=== PATIENT | male | born 1970 | race Two or more races ===

== ENCOUNTER 2016-10-08 22:24 | Emergency (ER) | payer SELFPAY ==
[~2016-10-08] VITALS: Ht 177.8 cm; Wt 83.9 kg
--- NOTE | 2016-10-08 22:29 | NUR ---
PT A/OX4 BREATHING EFFORTLESSLY ON ROOM AIR, PT STATES HE IS FEELING PERFECTLY FINE AND DOES NOT WANT VITALS OR TO BE TRIAGED, MADE AWARE
--- NOTE | 2016-10-08 22:34 | NUR ---
DR LEWIS AT BEDSIDE FOR EVAL.
[2016-10-08] MEDS ORDERED: IV SET PRIMARY 1 EA INFUS.SET MC ONE (22:49)
[2016-10-08] MEDS ORDERED: IV NS 0.9% 500 ML IV ONE (22:49)
[2016-10-08] MEDS ORDERED: IV NS 0.9% 500 ML BAG IV ONE (23:00)
[2016-10-08 23:02] LABS: BASOPHILS % (AUTO) 0.7 % (0.0-2.0); EOSINOPHILS # (AUTO) 0.1 /CMM (0.0-0.7); EOSINOPHILS % (AUTO) 2.5 % (0.0-6.0); HEMATOCRIT 47 % (39-51); HEMOGLOBIN 15.9 g/dL (13.5-17.5); LYMPHOCYTES # (AUTO) 1.8 /CMM (0.8-4.8); LYMPHOCYTES % (AUTO) 34.6 % (20.0-44.0); MEAN CORPUSCULAR HEMOGLOBIN 31 PG (26.0-33.0); MEAN CORPUSCULAR HGB CONC 34 g/dl (31.0-36.0); MEAN CORPUSCULAR VOLUME 90 fL (80-96); MONOCYTES # (AUTO) 0.4 /CMM (0.1-1.30); MONOCYTES % (AUTO) 7.2 % (2.0-12.0); NEUTROPHILS # (AUTO) 2.9 /CMM (1.8-8.9); PLATELET COUNT (AUTO) 243 /CMM (150-450); RDW COEFFICIENT OF VARIATION 12.6 (11.5-15.0); RED BLOOD CELL COUNT(AUTO) 5.18 MIL/uL (4.5-6.0); WHITE BLOOD COUNT (AUTO) 5.3 K/uL (4.3-11.0)
--- NOTE | 2016-10-08 23:19 | NUR ---
Patient does not wish to proceed with medical care recommended by Dr. Messer. Patient given information related to possible complications, up to and including , which could occur as a result of leaving the hospital at this time. Patient verbalizes understanding of risks involved due to leaving against medical advice. Patient has signed AMA form. IV removed. Catheter intact and site benign. Pressure and 4x4 applied to site. No bleeding noted.
[2016-10-08 23:20] VITALS: BP 124/66
[2016-10-08 23:32] LABS: INR 0.99 (0.87-1.13); PROTHROMBIN TIME 10.6 SECS (9.5-12.7)
[2016-10-08 23:36] LABS: ALANINE AMINOTRANSFERASE 32 U/L (12-78); ALBUMIN 3.9 g/dL (3.4-5.0); ALCOHOL, BLOOD < 3 mg/dL (0-0); ALKALINE PHOSPHATASE 101 U/L (46-116); ASPARTATE AMINOTRANSFERASE 26 U/L (15-37); BILIRUBIN,DIRECT 0.2 mg/dL (0.0-0.2); BILIRUBIN,TOTAL 1.3 mg/dL (0.2-1.0); CALCIUM, SERUM 9.2 mg/dL (8.5-10.1); CARBON DIOXIDE 29 mmol/L (21-32); CHLORIDE 105 mmol/L (98-107); GFR 80 mL/min (>60); GLUCOSE 96 mg/dL (74-106); POTASSIUM 4.1 mmol/L (3.5-5.1); SODIUM SERUM 140 mmol/L (136-145); TOTAL PROTEIN, SERUM 7.4 g/dL (6.4-8.2); UREA NITROGEN, BLOOD 19 mg/dL (7-18)
== END 2016-10-08 23:21 | disposition left against medical advice (07) ==
LOC: ER 22:26
DX: R56.9 Unspecified convulsions (principal); R79.1 Abnormal coagulation profile
CPT/HCPCS: 36415; 80048; 80076; 82962; 85025; 85730; 93005; 99285; A4606; G0480; J7040; Z7610

== ENCOUNTER 2017-07-19 04:30 | Emergency (ER) | payer BC ==
[~2017-07-19] VITALS: Ht 175.3 cm; Wt 81.6 kg
[2017-07-19 04:49] VITALS: BP 113/66
== END 2017-07-19 05:03 | disposition home or self-care (01) ==
LOC: ER 04:37
DX: F12.10 Cannabis abuse, uncomplicated (principal)
CPT/HCPCS: A4606; Z7502; Z7610

== ENCOUNTER 2017-09-20 08:02 | Emergency (ER) | payer BC ==
[~2017-09-20] VITALS: Ht 177.8 cm; Wt 81.6 kg
--- NOTE | 2017-09-20 08:05 | NUR ---
AAOX3, BIB FAMILY C/O DIFFUSE ABDOMINAL PAIN SINCE 430AM, DENIES VOMITING/DIARRHEA, FELT NAUSEOUS PRIOT TO ARRIVAL. SKIN IS WARM AND DRY. PROVIDED WARM BLANKET FOR COMFORT. PLACED ON THE MONITOR. AWAITING MD FOR EVAL. AFEBRILE.
--- NOTE | 2017-09-20 08:24 | NUR ---
DR RDZ AT FOR EVAL.
[2017-09-20] MEDS ORDERED: KETOROLAC TROMETHAMINE INJ 30 MG/ML VIAL ONE (08:29)
[2017-09-20] MEDS ORDERED: KETOROLAC TROMETHAMINE INJ 30 MG/ML VIAL IV ONE (08:30)
[2017-09-20 08:45] LABS: BASOPHILS # (AUTO) 0.1 /CMM (0.0-0.2); BASOPHILS % (AUTO) 0.8 % (0.0-2.0); EOSINOPHILS % (AUTO) 0.2 % (0.0-6.0); HEMATOCRIT 44 % (39-51); HEMOGLOBIN 14.8 g/dL (13.5-17.5); LYMPHOCYTES # (AUTO) 1.1 /CMM (0.8-4.8); LYMPHOCYTES % (AUTO) 14.4 % (20.0-44.0); MEAN CORPUSCULAR HEMOGLOBIN 31 PG (26.0-33.0); MEAN CORPUSCULAR HGB CONC 34 g/dl (31.0-36.0); MEAN CORPUSCULAR VOLUME 91 fL (80-96); MONOCYTES # (AUTO) 0.5 /CMM (0.1-1.30); MONOCYTES % (AUTO) 5.7 % (2.0-12.0); NEUTROPHILS # (AUTO) 6.2 /CMM (1.8-8.9); NEUTROPHILS % (AUTO) 78.9 % (43.0-81.0); PLATELET COUNT (AUTO) 230 /CMM (150-450); RDW COEFFICIENT OF VARIATION 13.3 (11.5-15.0); RED BLOOD CELL COUNT(AUTO) 4.84 MIL/uL (4.5-6.0); WHITE BLOOD COUNT (AUTO) 7.9 K/uL (4.3-11.0)
--- NOTE | 2017-09-20 08:55 | NUR ---
PATIENT CAME BACK FROM CT VIA GURNEY, PATIENT REMAINS IN STABLE CONDITION AT THIS TIME.
[2017-09-20 08:58] LABS: APPEARANCE,URINE CLEAR (CLEAR); BILIRUBIN,URINE NEGATIVE (NEGATIVE); BLOOD, URINE NEGATIVE Ery/uL (NEGATIVE); COLOR,URINE YELLOW (YELLOW); KETONES,URINE 3+ (NEGATIVE); LEUKOCYTE ESTERASE ,URINE NEGATIVE (NEGATIVE); NITRITE, URINE NEGATIVE (NEGATIVE); PROTEIN,URINE TRACE mg/dl (NEGATIVE); UGLUCOSE NEGATIVE (NEGATIVE); UROBILINOGEN,URINE 0.2 EU/dL (0.2)
[2017-09-20] MEDS ORDERED: HYDROMORPHONE INJ 0.5 MG/0.5 ML SYRINGE ONE (08:58)
[2017-09-20] MEDS ORDERED: HYDROMORPHONE INJ 0.5 MG/0.5 ML SYRINGE IV ONE (09:00)
[2017-09-20 09:07] LABS: BACTERIA,URINE None seen /HPF (None Seen); RBC,URINE NONE SEEN /HPF (0-2); SQUAMOUS EPITHELIAL CELL,UR Few /HPF (None Seen); WBC,URINE 0-2 /HPF (0-3)
[2017-09-20 10:01] VITALS: BP 122/75
--- NOTE | 2017-09-20 10:01 | NUR ---
IV removed. Catheter intact and site benign. Pressure and 4x4 applied to site. No bleeding noted.Patient discharged to home in stable condition. Written and verbal after care instructions given. Patient verbalizes understanding of instruction.
[2017-09-20 10:12] LABS: CALCIUM, SERUM 9.2 mg/dL (8.5-10.1); POTASSIUM 3.4 mmol/L (3.5-5.1)
[2017-09-20 10:17] LABS: ALBUMIN 4.3 g/dL (3.4-5.0); BILIRUBIN,DIRECT 0.2 mg/dL (0.0-0.2); BILIRUBIN,TOTAL 2.1 mg/dL (0.2-1.0); TOTAL PROTEIN, SERUM 7.9 g/dL (6.4-8.2)
== END 2017-09-20 10:02 | disposition home or self-care (01) ==
LOC: ER 08:04
DX: N20.0 Calculus of kidney (principal); G40.909 Epilepsy, unspecified, not intractable, without status epilepticus
CPT/HCPCS: 36415; 80048-TC; 80076-TC; 81000-TC; 83690-TC; 85025-TC; A4606; J1885; Z7610

== ENCOUNTER 2025-01-20 22:26 | Emergency (ER) | payer BC ==
[~2025-01-20] VITALS: Ht 177.8 cm; Wt 81.6 kg
[2025-01-20] MEDS ORDERED: IV NS 0.9% 250 ML IV ONE (22:59)
[2025-01-20] MEDS ORDERED: IOHEXOL-300 100 ML VIAL IV ONE (22:59)
[2025-01-20] MEDS ORDERED: CT SWABBABLE VALVE TRANS SET 1 EA INFUS.SET MC ONE (22:59)
[2025-01-20] MEDS ORDERED: KETOROLAC TROMETHAMINE INJ 30 MG/ML VIAL ONE (23:00)
[2025-01-20] MEDS: KETOROLAC TROMETHAMINE 15 MG/ML VIAL IV ONE (23:01)
[2025-01-20 23:15] LABS: PLATELET COUNT (AUTO) 247 K/uL (150-450); RED BLOOD CELL COUNT(AUTO) 4.74 MIL/uL (4.5-6.0); RED CELL DISTRIBUTION WIDTH 13.1 % (11.5-15.0); WHITE BLOOD COUNT (AUTO) 9.1 K/uL (4.3-11.0)
[2025-01-20 23:23] LABS: CALCIUM, SERUM 8.8 mg/dL (8.5-10.1); CREATININE 0.9 mg/dL (0.6-1.3); SODIUM SERUM 133.0 mmol/L (136-145); UREA NITROGEN, BLOOD 21.0 mg/dL (7-18)
[2025-01-20 23:29] LABS: ASPARTATE AMINOTRANSFERASE 21.0 U/L (15-37); TOTAL PROTEIN, SERUM 7.7 g/dL (6.4-8.2)
[2025-01-21 00:05] LABS: APPEARANCE,URINE CLEAR (CLEAR); BLOOD, URINE NEGATIVE Ery/uL (NEGATIVE); LEUKOCYTE ESTERASE ,URINE NEGATIVE (NEGATIVE); NITRITE, URINE NEGATIVE (NEGATIVE); UGLUCOSE NEGATIVE (NEGATIVE)
[2025-01-21 00:59] VITALS: BP 122/80; TEMP 98.7; O2SAT 96
[2025-01-21] MEDS ORDERED: AMOX-430 PO (16:51)
== END 2025-01-21 00:59 | disposition left against medical advice (07) ==
LOC: ER 22:28
DX: R10.32 Left lower quadrant pain (principal); R10.31 Right lower quadrant pain; Z86.69 Personal history of other diseases of the nervous system and sense organs
CPT/HCPCS: 99285; 74177; 96374; 85025; 80048; 83690; 80076; 81003; 36415; J1885; J7050; J7040; Q9967

== ENCOUNTER 2025-01-21 16:17 | Emergency (ER) | payer BC ==
[~2025-01-21] VITALS: Ht 177.8 cm; Wt 81.6 kg
[2025-01-21] MEDS ORDERED: AMOX-430 PO (16:51)
[2025-01-21] MEDS ORDERED: AMOX/CLAVULANATE 875 MG TABLET ONE (16:59)
[2025-01-21] MEDS: AMOX/CLAVULANATE 875 MG TABLET PO ONE (17:06)
[2025-01-21 17:25] VITALS: BP 126/84; TEMP 98.3; O2SAT 96
== END 2025-01-21 17:25 | disposition home or self-care (01) ==
LOC: ER 16:23
DX: K57.92 Diverticulitis of intestine, part unspecified, without perforation or abscess without bleeding (principal); Z60.2 Problems related to living alone